=== PATIENT | male | born 1940 | race Caucasian/White ===

== ENCOUNTER 2017-10-07 06:15 | Day surgery (SDC) | payer OTHER ==
--- NOTE | 2017-10-06 16:20 | RAD REPORT ---
EXAM DESCRIPTION: RAD - Chest Pa And Lat (2 Views) - 10/06/2017 4:02 pm CLINICAL HISTORY: Hypertension Chest pain. COMPARISON: Abdomen 1 View (KUB) dated 09/25/2017 FINDINGS: The lungs are clear. The heart is normal in size. No displaced fractures. IMPRESSION: No acute or concerning finding suspected.
[2017-10-06 16:33] LABS: Absolute Lymphocytes (CBC) 1.9 K/uL (0.7-4.9); Absolute Monocytes 0.7 K/uL (0.1-1.3); Absolute Neutrophil 4.7 K/uL (1.8-8.0); Basophils % 0.9 % (0-1.3); Eosinophils % 4.3 % (0-4.4); Hematocrit 40.6 % (39.6-49.0); Lymphocytes % 24.5 % (15.3-44.8); MCH 29.7 pg (27.0-35.0); MCV 87.3 fL (80-100); MPV 9.9 fL (7.6-11.3); Monocytes % 8.8 % (3.3-12.3); RBC Red Blood Cell Count 4.65 M/uL (4.33-5.43)
[2017-10-06 16:34] LABS: Urine Appearance CLEAR; Urine Bilirubin NEGATIVE (NEG); Urine Blood NEGATIVE (NEG); Urine Color YELLOW; Urine Glucose 2+ (NEG); Urine Microscopic Reflex NO UMIC; Urine Protein NEGATIVE (NEG); Urine Specific Gravity 1.025 (1.005-1.030); Urine Urobilinogen 0.2 mg/dL (0.2-1.0)
[2017-10-06 16:48] LABS: Protime INR 1.01
[2017-10-06 16:51] LABS: Uric Acid 4.1 mg/dL (3.5-7.2)
--- NOTE | 2017-10-07 06:48 | EKG ---
Test Date: 2017-10-06 Test Time: 15:55:32 Surgeon Partner: MELISSA MEASUREMENT RESULTS: Intervals: Rate: 84 NV: 208 QRSD: 80 QT: 364 QTc: 430 [place]: P: 24 NV: 208 QRS: -7 T: 65 INTERPRETIVE STATEMENTS: Normal sinus rhythm Normal ECG No previous ECG available for comparison Electronically Signed On 10-07-17 06:48:08 CDT by Jack Worthy
[2017-10-07] MEDS ORDERED: GENTAMICIN 100 MG/100 ML BAG 100 MG/100 ML BAG IV ONE (06:55)
[2017-10-07] MEDS ORDERED: NA CHLORIDE 0.9% 1,000 ML ONE (06:55)
[2017-10-07] MEDS ORDERED: PROPOFOL 200 MG/20 ML VIAL IV ONE (07:21)
[2017-10-07] MEDS ORDERED: FENTANYL CITR 100 MCG/2 ML ONE (07:21)
[2017-10-07] MEDS ORDERED: LIDOCAINE 1% MPF 5 ML VIAL ONE (07:21)
[2017-10-07] MEDS ORDERED: EPHEDRINE SULF 50 MG/10 ML SYR ONE (07:57)
[2017-10-07] MEDS ORDERED: Phenylephrine HCl 10 MG/ML 1 ML VIAL ONE (08:12)
[2017-10-07] MEDS ORDERED: NS 0.9% VIAL 10 ML ONE (08:12)
[2017-10-07] MEDS ORDERED: ONDANSETRON 4 MG/2 ML VIAL ONE (08:33)
--- NOTE | 2017-10-07 09:03 | RAD REPORT ---
EXAM DESCRIPTION: RAD - Abdomen 1 View (KUB) - 10/07/2017 6:55 am CLINICAL HISTORY: calculi Pain COMPARISON: Abdomen 1 View (KUB) dated 09/25/2017; Stone Protocol dated 10/01/2017 FINDINGS: The bowel gas pattern is non-obstructive. No evidence of free air or pneumatosis. Cholecys tectomy clips. A calculus is not clearly seen. Multiple phleboliths are present in the pelvis. Prominent lower lumbar degenerative changes. IMPRESSION: No calculus is well visualized.
== END 2017-10-07 09:50 | disposition home or self-care (01) ==
LOC: OR 06:15
PROVIDERS: ATTEND Urology
PROC: 0TF3XZZ Fragmentation in Right Kidney Pelvis, External Approach (ICD-10-PCS; principal; 2017-10-07 07:30)
DX: N20.0 Calculus of kidney (principal); Z88.6 Allergy status to analgesic agent
CPT/HCPCS: 00872; 36415; 50590; 71046; 74018; 80048; 81003; 82962 ×2; 84100; 84550; 85025; 85610; 85730; 87086; 87088; 93005; G0103; J1580; J2370; J2405; J3010; J7030; Q9967

== ENCOUNTER 2017-10-21 07:15 | Day surgery (SDC) | payer OTHER ==
[2017-10-20 09:03] LABS: Urine Appearance CLEAR; Urine Blood 3+ (NEG); Urine Color DK YELLOW; Urine Glucose NEGATIVE (NEG); Urine Protein NEGATIVE (NEG); Urine Specific Gravity 1.025 (1.005-1.030); Urine pH 5.5 (5.0-7.0)
[2017-10-20 09:04] LABS: Absolute Lymphocytes (CBC) 1.4 K/uL (0.7-4.9); Absolute Monocytes 0.7 K/uL (0.1-1.3); Basophils % 0.5 % (0-1.3); Eosinophils % 9.9 % (0-4.4); Hematocrit 38.9 % (39.6-49.0); Lymphocytes % 15.2 % (15.3-44.8); MCH 29.9 pg (27.0-35.0); MCV 88.2 fL (80-100); MPV 9.6 fL (7.6-11.3); Monocytes % 7.7 % (3.3-12.3); RBC Red Blood Cell Count 4.41 M/uL (4.33-5.43)
[2017-10-20 09:18] LABS: Urine Microscopic Reflex ORDER UMIC
[2017-10-20 09:18] LABS: Protime INR 1.11
[2017-10-20 09:30] LABS: Urine Bacteria <20 /HPF (NONE SEEN); Urine Culture Reflex Order NOT NEEDED
[2017-10-20 09:31] LABS: Urine Bilirubin TRACE (NEG)
[~2017-10-21 07:15] MED LIST: CEFAZOLIN/SWI 1gm 1 GM/10 ML SYR IVP SCH; GENTAMICIN 80 MG/100 ML BAG 80 MG/100 ML BAG IV SCH
[2017-10-21] MEDS ORDERED: NA CHLORIDE 0.9% 1,000 ML ONE (07:39)
[2017-10-21] MEDS ORDERED: GENTAMICIN 100 MG/100 ML BAG 100 MG/100 ML BAG IV ONE (07:39)
[2017-10-21] MEDS ORDERED: FENTANYL CITR 100 MCG/2 ML ONE ×2 (07:56→08:17)
[2017-10-21] MEDS ORDERED: LIDOCAINE 1% MPF 5 ML VIAL ONE (07:56)
[2017-10-21] MEDS ORDERED: PROPOFOL 200 MG/20 ML VIAL IV ONE (07:56)
--- NOTE | 2017-10-21 08:49 | RAD REPORT ---
EXAM DESCRIPTION: RAD - Abdomen 1 View (KUB) - 10/21/2017 7:40 am CLINICAL HISTORY: PREOP Pain COMPARISON: Abdomen 1 View (KUB) dated 10/13/2017; Abdomen 1 View (KUB) dated 10/07/2017; Abdomen 1 Vie w (KUB) dated 09/25/2017 FINDINGS: The bowel gas pattern is non-obstructive. No evidence of free air or pneumatosis. No suspi cious calcifications. No significant bony findings. Cholecystectomy clips. IMPRESSION: Negative examination.
[2017-10-21] MEDS ORDERED: EPHEDRINE SULF 50 MG/10 ML SYR ONE (08:54)
[2017-10-21] MEDS ORDERED: ONDANSETRON HCL 40 MG/20 ML VIAL ONE (09:33)
[2017-10-21] MEDS ORDERED: Mastisol Adhesive Liq ONE (09:46)
== END 2017-10-21 11:15 | disposition home or self-care (01) ==
LOC: OR 07:15
PROVIDERS: ATTEND Urology
PROC: 0T768DZ Dilation of Right Ureter with Intraluminal Device, Via Natural or Artificial Opening Endoscopic (ICD-10-PCS; 2017-10-21)
PROC: 0TF6XZZ Fragmentation in Right Ureter, External Approach (ICD-10-PCS; principal; 2017-10-21 08:30)
DX: N20.1 Calculus of ureter (principal); E11.9 Type 2 diabetes mellitus without complications; I10 Essential (primary) hypertension; E78.00 Pure hypercholesterolemia, unspecified; Z79.84 Long term (current) use of oral hypoglycemic drugs; Z79.82 Long term (current) use of aspirin; Z88.5 Allergy status to narcotic agent; Z87.442 Personal history of urinary calculi
CPT/HCPCS: 36415; 50590; 52332; 74018; 80048; 82360; 82962 ×2; 85025; 85610; 85730; 87086; 87088 ×2; 88300; J1580; J2405; J3010 ×2; J7030; Q9967; 81003; 81015

== ENCOUNTER 2017-11-04 08:16 | Day surgery (SDC) | payer OTHER ==
[2017-10-30 16:50] LABS: Urine Appearance CLEAR; Urine Bilirubin NEGATIVE (NEG); Urine Blood 3+ (NEG); Urine Color YELLOW; Urine Glucose TRACE (NEG); Urine Protein 2+ (NEG); Urine Specific Gravity >=1.030 (1.005-1.030); Urine Urobilinogen 0.2 mg/dL (0.2-1.0)
[2017-10-30 16:51] LABS: Absolute Lymphocytes (CBC) 1.8 K/uL (0.7-4.9); Absolute Monocytes 0.6 K/uL (0.1-1.3); Absolute Neutrophil 4.5 K/uL (1.8-8.0); Basophils % 1.4 % (0-1.3); Eosinophils % 9.7 % (0-4.4); Lymphocytes % 22.6 % (15.3-44.8); MPV 9.7 fL (7.6-11.3); Monocytes % 8.1 % (3.3-12.3)
[2017-10-30 16:52] LABS: Urine Microscopic Reflex ORDER UMIC
[2017-10-30 16:58] LABS: Urine Bacteria <20 /HPF (NONE SEEN)
[2017-10-30 16:59] LABS: Urine Culture Reflex Order NOT NEEDED; Urine Mucus SLIGHT /HPF (NONE SEEN)
[2017-10-30 17:04] LABS: Protime INR 1.09
[2017-10-30 17:18] LABS: Potassium 3.9 mmol/L (3.5-5.1)
[2017-11-04] MEDS ORDERED: NA CHLORIDE 0.9% 1,000 ML ONE (08:38)
[2017-11-04] MEDS ORDERED: GENTAMICIN 100 MG/100 ML BAG 100 MG/100 ML BAG IV ONE (08:38)
--- NOTE | 2017-11-04 08:54 | RAD REPORT ---
EXAM DESCRIPTION: RAD - Abdomen 1 View (KUB) - 11/04/2017 8:37 am CLINICAL HISTORY: pre op Pain COMPARISON: Abdomen 1 View (KUB) dated 10/27/2017; Abdomen 1 View (KUB) dated 10/21/2017; Abdomen 1 Vi ew (KUB) dated 10/13/2017; Abdomen 1 View (KUB) dated 10/07/2017 FINDINGS: The bowel gas pattern is non-obstructive. No evidence of free air or pneumatosis. Right-si ded double-J stent is in place, unchanged in position. No significant bony findings. Cholecystectomy clips. IMPRESSION: Right-sided double-J stent, unchanged.
[2017-11-04] MEDS ORDERED: PROPOFOL 200 MG/20 ML VIAL IV ONE (09:06)
[2017-11-04] MEDS ORDERED: FENTANYL CITR 100 MCG/2 ML ONE (09:07)
[2017-11-04] MEDS ORDERED: ONDANSETRON HCL 40 MG/20 ML VIAL ONE (09:07)
[2017-11-04] MEDS ORDERED: EPHEDRINE SULF 50 MG/10 ML SYR ONE (10:21)
--- NOTE | 2017-11-04 10:50 | RAD REPORT ---
EXAM DESCRIPTION: RAD - Urography Retrograde - 11/04/2017 10:27 am CLINICAL HISTORY: RIGHT STENT COMPARISON: Abdomen 1 View (KUB) dated 11/04/2017; Abdomen 1 View (KUB) dated 10/27/2017 FINDINGS: Fluoroscopic imaging of the abdomen was submitted as part stent placement procedure. Detai ls of the procedure not available. Total fluoro time: 2 minutes and 40 seconds.
== END 2017-11-04 12:15 | disposition home or self-care (01) ==
LOC: OR 08:16
PROVIDERS: ATTEND Urology
PROC: 0T768DZ Dilation of Right Ureter with Intraluminal Device, Via Natural or Artificial Opening Endoscopic (ICD-10-PCS; 2017-11-04)
PROC: 0TC68ZZ Extirpation of Matter from Right Ureter, Via Natural or Artificial Opening Endoscopic (ICD-10-PCS; principal; 2017-11-04 10:00)
DX: N20.2 Calculus of kidney with calculus of ureter (principal); Q62.39 Other obstructive defects of renal pelvis and ureter; E11.9 Type 2 diabetes mellitus without complications; I10 Essential (primary) hypertension; E78.00 Pure hypercholesterolemia, unspecified; Z88.6 Allergy status to analgesic agent; Z83.3 Family history of diabetes mellitus; Z82.49 Family history of ischemic heart disease and other diseases of the circulatory system
CPT/HCPCS: 36415; 52332; 52352; 74018; 74420; 80048; 82360; 82962 ×2; 85025; 85610; 85730; 87088; 88300; J1580; J2405; J3010; J7030; Q9967; 81003; 81015; 87086

== ENCOUNTER 2020-04-25 06:30 | Day surgery (SDC) | payer OTHER ==
[2020-04-24 16:54] LABS: Absolute Lymphocytes (CBC) 2.1 K/uL (0.7-4.9); Basophils % 0.9 % (0-1.3); Hematocrit 45.1 % (39.6-49.0); Lymphocytes % 26.4 % (15.3-44.8); MPV 9.5 fL (7.6-11.3); RBC Red Blood Cell Count 4.98 M/uL (4.33-5.43)
[2020-04-24 17:13] LABS: Potassium 4.8 mmol/L (3.5-5.1)
--- NOTE | 2020-04-24 17:14 | RAD REPORT ---
EXAM DESCRIPTION: Tammy Hurtado And Errol (2 Views)04/24/2020 5:00 pm CLINICAL HISTORY: Preop for mass on back COMPARISON: None FINDINGS: The lungs appear clear of acute infiltrate. The heart is normal size IMPRESSION: No acute abnormalities displayed
[2020-04-25] MEDS ORDERED: CEFAZOLIN/SWI 1gm 1 GM/10 ML SYR ONE (06:53)
[2020-04-25] MEDS ORDERED: NA CHLORIDE 0.9% 1,000 ML ONE ×2 (06:53→08:48)
[2020-04-25] MEDS ORDERED: FENTANYL CITR 100 MCG/2 ML ONE (07:33)
[2020-04-25] MEDS ORDERED: propofoL 200 MG/20 ML VIAL IV ONE (07:33)
[2020-04-25] MEDS ORDERED: KETOROLAC 30 MG/ML INJ ONE (07:34)
[2020-04-25] MEDS ORDERED: ONDANSETRON 4 MG/2 ML VIAL ONE (07:34)
[2020-04-25] MEDS ORDERED: LIDOCAINE 2% MPF 5 ML VIAL ONE (07:34)
--- NOTE | 2020-04-25 08:25 | P.BOP ---
Preoperative diagnosis: infected back suQ mass with abscess 6.5 x 5.5cm Postoperative diagnosis: same Primary procedure: Excisional bipsy of infected back suQ mass with abscess 6.5 x 5.5cm Estimated blood loss: <10cc Specimen: infected back suQ mass, culture Findings: infected back suQ mass with deep abscess 6.5 x 5.5cm Anesthesia: General Complications: None Transferred to: Recovery Room Condition: Good
[2020-04-25 09:00] VITALS: O2SAT 99
--- NOTE | 2020-04-25 09:25 | OP ---
Date of Procedure: 04/25/2020 Surgeon: Armani Sheppard MD Preoperative Diagnosis: Infected back subcutaneous mass with abscess. Postoperative Diagnosis: Infected back subcutaneous mass with abscess. Procedure: Excisional biopsy of infected back subcutaneous mass with abscess drainage, 6.5 x 5.5 cm. Specimen: Mass and also culture from the abscess. Anesthesia: General plus local. Indications: This is the case of a male, who comes to us with a very red and tender mass in the back . The patient says he had lanced in that area many years ago, but never completely excised. Now, he comes with that large infected mass in the back. The benefits, alternatives, and risks of excisiona l biopsy of that mass with drainage of an abscess fully explained to the patient which include, but n ot limited to infection, bleeding, damage to adjacent, anesthesia complication, recurrence, TX, and e anali . He also understands this may not relieve the symptoms, he might need more than one surgic al intervention. He understands what explained to him in details the Wound Care that include most li harjinder a normal saline on the back. We already given a prescription yesterday for his saline. We then gave him instructions how to do dressing changes. Description Of Proecdure: The patient brought to the operating room, placed in supine position. Ane sthesia was done without complication. The patient was placed in lateral decubitus position with pro per protection. The back was prepped and draped in a sterile fashion. A time-out was called. We pr oceeded to make an incision on the skin and going down the skin we removed the mass. We also encount ered an abscess with loculations present that extends in the fatty tissue and approximated an area ab out 6.5 x 5.5 cm. All the loculations were opened. Cultures were obtained. Area was irrigated. He mostasis obtained and the area was packed with a dry dressing after local anesthetic. The patient to lerated the procedure well. The patient sent to recovery in stable condition. JAHAIRA/PATRICIA Voice ID: [id number] Report ID: [id number]
--- NOTE | 2020-04-25 09:31 | DS ---
Diagnosis: Infected back subcutaneous mass with abscess. Procedure: Excisional biopsy of infected back subcutaneous mass with abscess drainage. Disposition: Home. Activity: As tolerated. No heavy lifting. Plan: Follow up in my office in 1 week. Call for appointment at [phone]. Wet-to-dry dressing with normal saline daily. Medications: The patient already has antibiotics at home, already have a saline, and also the Ultrac et. JAHAIRA/PATRICIA Voice ID: [id number] Report ID: [id number]
[2020-04-25 09:45] VITALS: BP 139/83; TEMP 96.7
== END 2020-04-25 10:15 | disposition home or self-care (01) ==
LOC: OR 06:30
PROVIDERS: ATTEND Surgery
PROC: 0JB70ZZ Excision of Back Subcutaneous Tissue and Fascia, Open Approach (ICD-10-PCS; principal; 2020-04-25 07:30)
DX: L72.0 Epidermal cyst (principal); Z20.822 Contact with and (suspected) exposure to COVID-19
CPT/HCPCS: 87070; 85025; 80048; 36415; 87205; 82947; 88304; 87075; 71046; 11406; U0002; J2704; J3010; J0690; J7030 ×2; J2405